=== PATIENT | female | born 1975 | race Caucasian/White ===

== ENCOUNTER 2018-04-21 23:56 | Emergency (ER) | payer OTHER ==
[~2018-04-21] VITALS: Ht 172.7 cm; Wt 85.3 kg
[~2018-04-21 23:56] MED LIST: ACEBUTCAFT; ACEBUTCAFT PO; ALBU90OI INH; ALPR1 PO; BUPR1 PO; BUSP10 PO; BYSTOLIC; CAFFERGOT; CHLO25B PO; CITA20 PO; CLON.1 PO; CLON1 PO; CODBUTACEC PO; COMPAZINE; CYCL10 PO; DIVA125EC PO; ELET40TA PO; FOLI1 PO; FROV2.5; GABA300 PO; GUAI600T33 PO; IBUP400; KETO60I IM; LEVSOD200 PO; LEVSOD50 PO; LORA1; LORA1 PO; Naprosyn500 MG PO; ONDA8ODT MM; ORTHOTRYCYCLINE; OXYACE5T PO; PANT20 PO; POTCHL20ER PO; PROM25; PROM25 PO; PROM25S PR; Suboxone PO; TRAM50 PO; VERA180ERA; VERA180ERB; Zofran Odt4 MG SL
== END 2018-04-22 00:55 | disposition home or self-care (01) ==
LOC: ER 23:56
DX: S61.211A Laceration without foreign body of left index finger without damage to nail, initial encounter (principal); Z23 Encounter for immunization; F41.9 Anxiety disorder, unspecified; Z88.8 Allergy status to other drugs, medicaments and biological substances; Z79.899 Other long term (current) drug therapy; W26.0XXA Contact with knife, initial encounter
CPT/HCPCS: 12001; 90471; 90714; 99282

== ENCOUNTER 2018-05-13 18:15 | Emergency (ER) | payer OTHER ==
[~2018-05-13] VITALS: Ht 172.7 cm; Wt 83.5 kg
[2018-05-13 19:03] LABS: BASOPHILS ABSOLUTE AUTO 0.02 K/mm3 (0.00-0.23); BASOPHILS PERCENT AUTO 0 % (0-2); EOSINOPHILS PERCENT AUTO 0 % (0-6); Hematocrit 38.8 % (33.0-51.0); Hemoglobin 13.2 g/dL (11.5-16.0); IMMATURE GRAN ABSOLUTE AUTO 0.07 K/mm3 (0.00-0.10); IMMATURE GRAN PERCENT AUTO 0 % (0-1); LYMPHOCYTES ABSOLUTE AUTO 1.33 K/mm3 (0.84-5.20); LYMPHOCYTES PERCENT AUTO 8 % (21-46); MONOCYTES ABSOLUTE AUTO 0.84 K/mm3 (0.16-1.47); MONOCYTES PERCENT AUTO 5 % (4-13); Mean Corpuscular HGB 33.1 pg (26.0-34.0); Mean Corpuscular Volume 97 fL (80-100); Mean Platelet Volume 9.8 fL (9.1-12.4); NEUTROPHILS ABSOLUTE AUTO 15.43 K/mm3 (1.96-9.15); NEUTROPHILS PERCENT AUTO 87 % (41-73); Platelet Count 457 K/mm3 (150-400); RDW Standard Deviation 46.6 fL (35.1-46.3); Red Blood Cell Count 3.99 M/mm3 (3.80-5.20); White Blood Cell Count 17.69 K/mm3 (4.00-11.30)
[2018-05-13 19:16] LABS: Alanine Aminotransfer (ALT/SGP 42 U/L (12-78); Albumin, Blood 3.9 g/dL (3.4-5.0); Alk Phos 75 U/L (50-136); Anion Gap 8 mmol/L (6-16); Aspartate Aminotrans (AST/SGOT 19 U/L (12-37); Bilirubin, Total 0.2 mg/dL (0.1-1.0); Blood Urea Nitrogen 26 mg/dL (8-24); CO2, Blood 26 mmol/L (21-32); Calcium, Blood 9.6 mg/dL (8.5-10.1); Chloride, Blood 102 mmol/L (98-108); Creatinine, Blood 0.96 mg/dL (0.40-1.00); Globulin, Blood 4.1 g/dL (2.2-4.0); Glomerular Filtration Rate >60 (60-); Glucose, Blood 117 mg/dL (70-99); Potassium, Blood 3.7 mmol/L (3.5-5.5); Sodium, Blood 136 mmol/L (136-145)
== END 2018-05-13 21:29 | disposition home or self-care (01) ==
LOC: ER 18:15
PROVIDERS: Emergency Medicine
DX: R00.0 Tachycardia, unspecified (principal); M79.672 Pain in left foot; Z88.8 Allergy status to other drugs, medicaments and biological substances; Z79.899 Other long term (current) drug therapy; F41.9 Anxiety disorder, unspecified; F17.210 Nicotine dependence, cigarettes, uncomplicated
CPT/HCPCS: 36415; 71046; 80053; 84484; 85025; 93005; 93010; 96374; 99285-25; J2060; J7120

== ENCOUNTER → 2020-06-15 | Outpatient (CLI) | payer OTHER ==
[2020-06-15 16:41] LABS: BASOPHILS ABSOLUTE AUTO 0.06 K/mm3 (0.00-0.23); BASOPHILS PERCENT AUTO 1 % (0-2); EOSINOPHILS ABSOLUTE AUTO 0.41 K/mm3 (0.00-0.68); EOSINOPHILS PERCENT AUTO 3 % (0-6); Hematocrit 39.5 % (33.0-51.0); Hemoglobin 14.1 g/dL (11.5-16.0); IMMATURE GRAN ABSOLUTE AUTO 0.03 K/mm3 (0.00-0.10); IMMATURE GRAN PERCENT AUTO 0 % (0-1); LYMPHOCYTES ABSOLUTE AUTO 3.55 K/mm3 (0.84-5.20); LYMPHOCYTES PERCENT AUTO 28 % (21-46); MONOCYTES ABSOLUTE AUTO 0.96 K/mm3 (0.16-1.47); MONOCYTES PERCENT AUTO 8 % (4-13); Mean Corpuscular HGB 32.9 pg (26.0-34.0); Mean Corpuscular HGB Conc 35.7 g/dL (31.5-36.5); Mean Corpuscular Volume 92 fL (80-100); Mean Platelet Volume 9.9 fL (9.1-12.4); NEUTROPHILS ABSOLUTE AUTO 7.57 K/mm3 (1.96-9.15); NEUTROPHILS PERCENT AUTO 60 % (41-73); Platelet Count 475 K/mm3 (150-400); Red Blood Cell Count 4.28 M/mm3 (3.80-5.20); White Blood Cell Count 12.58 K/mm3 (4.00-11.30)
[2020-06-15 16:53] LABS: Albumin, Blood 3.8 g/dL (3.4-5.0); Bilirubin, Total 0.3 mg/dL (0.1-1.0); Calcium, Blood 9.1 mg/dL (8.5-10.1); Creatinine, Blood 1.15 mg/dL (0.40-1.00); Globulin, Blood 3.8 g/dL (2.2-4.0); Potassium, Blood 2.9 mmol/L (3.5-5.5); Total Protein, Blood 7.6 g/dL (6.4-8.2)
== END | disposition home or self-care (01) ==
LOC: LAB 16:38 → LAB SHORT 16:38
PROVIDERS: General Practice
DX: S22.31XA Fracture of one rib, right side, initial encounter for closed fracture (principal)
CPT/HCPCS: 80053; 85025

== ENCOUNTER → 2021-12-09 | Outpatient (CLI) | payer OTHER ==
[2021-12-09 09:21] LABS: BASOPHILS ABSOLUTE AUTO 0.06 K/mm3 (0.00-0.23); BASOPHILS PERCENT AUTO 1 % (0-2); EOSINOPHILS ABSOLUTE AUTO 0.22 K/mm3 (0.00-0.68); EOSINOPHILS PERCENT AUTO 2 % (0-6); Hematocrit 43.8 % (33.0-51.0); Hemoglobin 15.5 g/dL (11.5-16.0); IMMATURE GRAN ABSOLUTE AUTO 0.02 K/mm3 (0.00-0.10); IMMATURE GRAN PERCENT AUTO 0 % (0-1); LYMPHOCYTES PERCENT AUTO 16 % (21-46); MONOCYTES ABSOLUTE AUTO 0.49 K/mm3 (0.16-1.47); MONOCYTES PERCENT AUTO 5 % (4-13); Mean Corpuscular HGB 33.7 pg (26.0-34.0); Mean Corpuscular HGB Conc 35.4 g/dL (31.5-36.5); Mean Corpuscular Volume 95 fL (80-100); Mean Platelet Volume 9.9 fL (9.1-12.4); NEUTROPHILS PERCENT AUTO 75 % (41-73); Platelet Count 436 K/mm3 (150-400); RDW Coefficient Variation 13.1 % (11.7-14.2); RDW Standard Deviation 45.1 fL (35.1-46.3); White Blood Cell Count 9.19 K/mm3 (4.00-11.30)
[2021-12-09 10:06] LABS: Alanine Aminotransfer (ALT/SGP 45 U/L (12-78); Albumin, Blood 4.2 g/dL (3.4-5.0); Albumin/Globulin Ratio 1.1 (0.8-1.8); Alk Phos 68 U/L (50-136); Anion Gap 6 mmol/L (6-16); Aspartate Aminotrans (AST/SGOT 25 U/L (12-37); Bilirubin, Total 0.5 mg/dL (0.1-1.0); Blood Urea Nitrogen 17 mg/dL (8-24); Bun/Creatinine Ratio 18.7 (12.0-20.0); CO2, Blood 27 mmol/L (21-32); Calcium, Blood 9.5 mg/dL (8.5-10.1); Chloride, Blood 105 mmol/L (98-108); Creatinine, Blood 0.91 mg/dL (0.40-1.00); Globulin, Blood 3.9 g/dL (2.2-4.0); Glomerular Filtration Rate >60 (60-); Glucose, Blood 127 mg/dL (70-99); Potassium, Blood 3.6 mmol/L (3.5-5.5); Sodium, Blood 138 mmol/L (136-145); Total Protein, Blood 8.1 g/dL (6.4-8.2)
== END | disposition home or self-care (01) ==
LOC: LAB SHORT 09:18
PROVIDERS: Physician Assistant
DX: R10.11 Right upper quadrant pain (principal)
CPT/HCPCS: 80053; 83690; 85025

== ENCOUNTER → 2023-02-04 | Outpatient (CLI) | payer BC | END | disposition home or self-care (01) | LOC: LAB 09:36 → LAB SHORT 09:36 | DX: R23.8 Other skin changes (principal) | CPT/HCPCS: 87070; 87205 ==

== ENCOUNTER → 2023-05-06 | Outpatient (CLI) | payer OTHER, BC ==
[2023-05-10 15:09] LABS: HPV 16 Negative (Negative); HPV 18 Negative (Negative); HPV OTHER HR TYPES Negative (Negative)
== END | disposition home or self-care (01) ==
LOC: LAB SHORT 13:03 → LAB 13:03
PROVIDERS: Obstetrics & Gynecology
DX: Z01.419 Encounter for gynecological examination (general) (routine) without abnormal findings (principal)
CPT/HCPCS: 87624; G0145

== ENCOUNTER → 2023-06-16 | Outpatient (CLI) | payer OTHER, BC | LOC: LAB SHORT 10:27 → LAB 10:27 | DX: N92.1 Excessive and frequent menstruation with irregular cycle (principal) | CPT/HCPCS: 88305 ==

== ENCOUNTER 2023-10-08 10:53 | Emergency (ER) | payer OTHER ==
[~2023-10-08] VITALS: Ht 172.7 cm; Wt 90.7 kg
[2023-10-08 12:06] LABS: BASOPHILS ABSOLUTE AUTO 0.07 K/mm3 (0.00-0.23); BASOPHILS PERCENT AUTO 1 % (0-2); EOSINOPHILS ABSOLUTE AUTO 0.44 K/mm3 (0.00-0.68); EOSINOPHILS PERCENT AUTO 5 % (0-6); Hematocrit 40.6 % (33.0-51.0); Hemoglobin 14.1 g/dL (11.5-16.0); IMMATURE GRAN ABSOLUTE AUTO 0.04 K/mm3 (0.00-0.10); IMMATURE GRAN PERCENT AUTO 0 % (0-1); LYMPHOCYTES PERCENT AUTO 21 % (21-46); MONOCYTES ABSOLUTE AUTO 1.06 K/mm3 (0.16-1.47); MONOCYTES PERCENT AUTO 12 % (4-13); Mean Corpuscular HGB 32.4 pg (26.0-34.0); Mean Corpuscular HGB Conc 34.7 g/dL (31.5-36.5); Mean Corpuscular Volume 93 fL (80-100); Mean Platelet Volume 10.3 fL (9.1-12.4); NEUTROPHILS ABSOLUTE AUTO 5.71 K/mm3 (1.96-9.15); NEUTROPHILS PERCENT AUTO 62 % (41-73); Platelet Count 391 K/mm3 (150-400); RDW Coefficient Variation 13.4 % (11.7-14.2); RDW Standard Deviation 45.9 fL (35.1-46.3); Red Blood Cell Count 4.35 M/mm3 (3.80-5.20); White Blood Cell Count 9.22 K/mm3 (4.00-11.30)
[2023-10-08 12:30] LABS: Albumin, Blood 3.6 g/dL (3.4-5.0); Albumin/Globulin Ratio 0.9 (0.8-1.8); Bilirubin, Total 0.3 mg/dL (0.1-1.0); Bun/Creatinine Ratio 19.6 (12.0-20.0); Creatinine, Blood 0.82 mg/dL (0.40-1.00); Globulin, Blood 3.8 g/dL (2.2-4.0); Potassium, Blood 3.1 mmol/L (3.5-5.5); Total Protein, Blood 7.4 g/dL (6.4-8.2)
[2023-10-08 15:17] VITALS: BP 154/100
[2023-10-08] MEDS ORDERED: Ondansetron HCl 2 MG / ML 2ML Vial IV ONE (15:25)
[2023-10-08] MEDS ORDERED: HYDROmorphone HCl/Pf 1MG SYR IV ONE (15:25)
[2023-10-08] MEDS ORDERED: Metoclopramide HCl 5MG / ML 2ML Vial IV ONE (16:00)
[2023-10-08] MEDS ORDERED: Reglan10 MG PO (16:11)
[2023-10-08] MEDS ORDERED: HYDR1TAB94 PO (16:11)
== END 2023-10-08 16:31 | disposition home or self-care (01) ==
LOC: ER 10:53
PROVIDERS: Physician Assistant
DX: N93.9 Abnormal uterine and vaginal bleeding, unspecified (principal); Z88.8 Allergy status to other drugs, medicaments and biological substances; Z79.899 Other long term (current) drug therapy; F17.210 Nicotine dependence, cigarettes, uncomplicated
CPT/HCPCS: 76830; 76856; 80053; 84703; 85025; 96374; 96375; 99284-25; J1170; J2405; J2765

== ENCOUNTER 2023-12-22 06:10 | Day surgery (SDC) | payer OTHER ==
[2023-12-22] VITALS (18 sets, daily range): BP systolic 115–141; BP diastolic 74–98
[~2023-12-22] VITALS: Ht 170.2 cm; Wt 92.9 kg
[~2023-12-22 06:10] MED LIST changes: +HYDR1TAB94 PO; +LABETALOL PO; +LEVSOD25 PO; -LEVSOD50 PO; +ONDA4 PO; +Reglan10 MG PO
[2023-12-22] MEDS ORDERED: Lactated Ringer's 1,000 ML IV SCH ×2 (06:20→09:20)
[2023-12-22] MEDS ORDERED: CeFAZolin Sodium 2,000 MG in NS 100 ML IV SCH (06:20)
[2023-12-22] MEDS ORDERED: CYCL10 PO (06:30)
--- NOTE | 2023-12-22 06:46 | NUR ---
Ambulatory in Day Surgery History, Chart, Medications and Allergies reviewed before start of procedure.Lungs clear T/O to Auscultation. Patient confirms NPO status and agrees with scheduled surgery. Patient reports completing Chlorhexadine shower X2 prior to admission to hospital.Surgical site prepped with 2% Chlorhexidine cloth wipe X2. Patient States Post-Procedure ride home has been arranged.
[2023-12-22] MEDS ORDERED: propofoL 20 ML IV ONE (07:03)
[2023-12-22] MEDS ORDERED: FentaNYL Citrate 50 MCG/ML 2 ML Injection ONE ×4 (07:03→10:10)
[2023-12-22] MEDS ORDERED: Sugammadex Sodium 200 MG/2ML SDV (100 MG/ML) ONE (07:03)
[2023-12-22] MEDS ORDERED: Dexamethasone Sod Phos 10 MG/ML 1ML VIAL ONE (07:04)
[2023-12-22] MEDS ORDERED: Lidocaine HCl 2% 20 ML MDV ONE (07:04)
[2023-12-22] MEDS ORDERED: Rocuronium Bromide 10 MG/ML 5ML Injection IV ONE ×2 (07:04→08:54)
[2023-12-22] MEDS ORDERED: Ondansetron HCl 2 MG / ML 2ML Vial ONE (07:04)
[2023-12-22] MEDS ORDERED: Bupivacaine 0.5% HCl 5 MG/ML 30MLVIAL ONE (07:12)
[2023-12-22] MEDS ORDERED: Midazolam HCl 1MG / ML 2ML Vial IV ONE (07:20)
[2023-12-22] MEDS ORDERED: Ketorolac Tromethamine 30mg Vial ONE (08:00)
[2023-12-22] MEDS ORDERED: Labetalol HCL 5 MG/ML 4ML Injection (Single Dose) ONE (08:50)
[2023-12-22] MEDS ORDERED: Cyclobenzaprine HCl 10 MG Tab PO PRN (09:15)
[2023-12-22] MEDS ORDERED: Naloxone HCl 0.4MG / ML 1ML Vial IV PRN (09:20)
[2023-12-22] MEDS ORDERED: Acetaminophen 325 MG TABLET PO PRN (09:20)
[2023-12-22] MEDS ORDERED: Metoclopramide HCl 5MG / ML 2ML Vial IV PRN (09:20)
[2023-12-22] MEDS ORDERED: Ondansetron HCl 2 MG / ML 2ML Vial IV PRN (09:20)
[2023-12-22] MEDS ORDERED: HYDROmorphone HCl/Pf 1MG SYR ONE ×2 (09:24→09:44)
[2023-12-22] MEDS ORDERED: Simethicone 80 MG Chew PO PRN (09:25)
[2023-12-22] MEDS ORDERED: Estradiol 0.1 MG/24 HR Patch TOP SCH (09:25)
[2023-12-22] MEDS ORDERED: Metoclopramide HCl 10 MG Tab PO PRN (09:25)
[2023-12-22] MEDS ORDERED: HYDROmorphone HCl 2 MG Tab PO PRN (09:25)
[2023-12-22] MEDS ORDERED: Ondansetron 4 MG TAB PO PRN (09:25)
[2023-12-22] MEDS ORDERED: HYDROcodone 10-APAP 325 TAB PO PRN (09:25)
--- NOTE | 2023-12-22 11:12 | NUR ---
ARRIVED FROM PACU VIA GURNEY, AWAKE BUT DROWSY, A&OX4, C/O ABD PAIN, PT MEDICATED FOR PAIN PRIOR TO DC FROM PACU PER [employer] DEVELOPER, DENIES ANY NAUSEA, ABD LAP INCISIONS X4 W/ WOUND GLUE C/D/I, LUNGS CLEAR T/O, HRR, ACTIVE BT'S X4, ABD SOFT, YUE PAD IN PLACE, NO DRAINAGE NOTED, PAS IN PLACE, SKIN W/D, CONT. TO MONITOR FOR ANY CHANGES, MEDICATE FOR PAIN PRN, MONITOR UOP.
[2023-12-22] MEDS ORDERED: ACET325 PO (12:17)
[2023-12-22] MEDS ORDERED: ALORA1 EA10 TOP (12:18)
[2023-12-22] MEDS ORDERED: HYDACE10B PO (12:19)
--- NOTE | 2023-12-22 18:41 | NUR ---
SUMMARY S/P ROBOTIC TOTAL HYSTERECTOMY, PT HAS BEEN PAINFUL AND TEARFUL, HAS BEEN UP TO VOID SEVERAL TIMES WITHOUT DIFFICULTY, ABD INCISIONS C/D/I, NO DRAINAGE NOTED ON PERIPAD, TAKING NORCO PO AND DILAUDID PO PER EMAR FOR PAIN CONTROL REPORTS PAIN IS SLIGHTLY BETTER THIS EVENING AND WOULD LIKE TO GO HOME TONIGHT, STATES SHE HAS RX FOR PAIN MEDS ALREADY AT HOME, VSS, NO OTHER CHANGES THIS SHIFT.
--- NOTE | 2023-12-22 19:33 | NUR ---
PT CONT. TO HAVE 8/10 PAIN, STATES PAIN MEDS "ARE NOT WORKING" BUT PT STILL WANTS TO GO HOME, DR. MAHONEY NOTIFIED STATES PT CAN STAY IF SHE WANTS, NO NEW ORDERS RECEIVED, PT STILL WANTS TO GO HOME, MEDICATED W/ NORCO PRIOR TO DC, DC INSTRUCTIONS GIVEN, VERBALIZED UNDERSTANDING.
[2023-12-23] MEDS ORDERED: Levothyroxine Sodium 0.025 MG Tab PO SCH (06:00)
[2023-12-23] MEDS ORDERED: HydroCHLOROthiazide 25 mg Tab PO SCH (09:00)
[2023-12-23] MEDS ORDERED: Labetalol HCL 100 MG TAB PO SCH (09:00)
[2023-12-24] MEDS ORDERED: CEPH500 PO (04:31)
[2023-12-24] MEDS ORDERED: HYDROCODONE-AC1 EA19 PO (05:14)
[2023-12-24] MEDS ORDERED: ONDA4ODT MM (05:14)
[2023-12-24] MEDS ORDERED: PROGESTERONE200 M1 PO (05:15)
[2023-12-24] MEDS ORDERED: BUTALB-ACETAMI1 EAC5 PO (05:18)
[2023-12-24] MEDS ORDERED: HYDR1TAB94 PO (05:39)
[2023-12-27] MEDS ORDERED: DOXY100 PO (02:30)
== END 2023-12-22 19:40 | disposition home or self-care (01) ==
LOC: ORSCMMR 06:10 → ORD 07:30 → ORSCMMR 07:30 → SURS 11:00 → ORSCMMR 19:40
PROVIDERS: Obstetrics & Gynecology
PROC: 0UT7FZZ Resection of Bilateral Fallopian Tubes, Via Natural or Artificial Opening With Percutaneous Endoscopic Assistance (ICD-10-PCS; principal; 2023-12-22 07:30)
PROC: 0UT9FZZ Resection of Uterus, Via Natural or Artificial Opening With Percutaneous Endoscopic Assistance (ICD-10-PCS; principal; 2023-12-22 07:30)
PROC: 0UT2FZZ Resection of Bilateral Ovaries, Via Natural or Artificial Opening With Percutaneous Endoscopic Assistance (ICD-10-PCS; principal; 2023-12-22 07:30)
DX: N92.1 Excessive and frequent menstruation with irregular cycle (principal); Z87.42 Personal history of other diseases of the female genital tract; N94.6 Dysmenorrhea, unspecified; Q50.5 Embryonic cyst of broad ligament; N83.12 Corpus luteum cyst of left ovary; N73.6 Female pelvic peritoneal adhesions (postinfective); E03.9 Hypothyroidism, unspecified; F41.9 Anxiety disorder, unspecified; F32.A Depression, unspecified; Z86.16 Personal history of COVID-19; E78.00 Pure hypercholesterolemia, unspecified; Z79.899 Other long term (current) drug therapy
CPT/HCPCS: 86850; 86900; 86901; 88307; A9270; J0690; J1100; J1170; J1885; J2250; J2405; J2704; J3010; J7120

== ENCOUNTER → 2024-09-15 | Outpatient (CLI) | payer BC ==
[~2024-09-15] MED LIST changes: +ACET325 PO; +ALORA1 EA10 TOP; +BUTALB-ACETAMI1 EAC5 PO; +CEPH500 PO; +DOXY100 PO; +HYDACE10B PO; +HYDROCODONE-AC1 EA19 PO; +ONDA4ODT MM; +PROGESTERONE200 M1 PO
[2024-09-15 09:54] LABS: Source, Urine Voided
[2024-09-15 11:04] LABS: Appearance, Urine Clear (Clear); Bilirubin, Urine Neg (Neg); Blood, Urine 1+ (Neg); Color, Urine Yellow (P-Yellow); Glucose Qualitative, Urine Neg (Neg); Ketones, Urine Neg (Neg); Leukocyte Esterase, Urine Neg (Neg); Nitrite, Urine Neg (Neg); Protein, Urine Neg (Neg); Urobilinogen, Urine NORM (Normal)
[2024-09-15 11:23] LABS: Bacteria Not Seen /hpf; Red Blood Cells, Urine 0-2 /hpf (0-2); Squamous Epithelial Cells Rare /hpf (Few); White Blood Cells, Urine 0-2 /hpf (0-5)
== END | disposition home or self-care (01) ==
LOC: LAB SHORT 09:52 → LAB 09:52
PROVIDERS: Nurse Practitioner Family
DX: R35.0 Frequency of micturition (principal)
CPT/HCPCS: 81001

== ENCOUNTER → 2025-03-06 | Outpatient (CLI) | payer BC ==
[2025-03-06 11:41] LABS: Bacterial Vaginosis PCR Negative (NEGATIVE); Candida Group, PCR NOT DETECTED (NOT DETECT); Candida glabrata-krusei, PCR NOT DETECTED (NOT DETECT)
== END ==
LOC: LAB SHORT 08:19 → LAB 08:19
PROVIDERS: Nurse Practitioner Family
DX: N89.8 Other specified noninflammatory disorders of vagina (principal)
CPT/HCPCS: 81515